=== PATIENT | female | born 1990 | race Hispanic/Latino ===

== ENCOUNTER 2025-03-22 00:08 | Emergency (ER) | payer OTHER ==
[~2025-03-22] VITALS: Ht 165.1 cm; Wt 58.1 kg
--- NOTE | 2025-03-22 00:50 | NUR ---
LEG CAST REMOVED BY MAGDI DRAKE
--- NOTE | 2025-03-22 01:21 | ERN ---
General Chief Complaint: Lower Extremity Pain/Injury Stated Complaint: C/O PAIN, SWELLING NUMBNESS TO LEFT LEG/FOOT; Time Seen by MD: 00:11 Source: patient History of Present Illness Initial Comments 34-year-old healthy female who five weeks ago fell work straining her left Achilles tendon and she was placed on crutches. Her follow-up appointment with an orthopedic surgeon a week later recommended a walking boot. Then proximally two weeks after that she slipped again and a work and re-injured her left Achilles tendon. At this point she noted that her has a muscles was bunched up towards her knee and she thought she could appreciate a sunken depression or gap underneath the skin covering her Achilles tendon. A that she had her left calf placed in a cast from her toes to her knee. She comes in today with increasing pain numbness and tingling in the toes of her left foot. On exam there is delayed capillary refill her left toes. Timing/Duration: 24 hours Allergies: Coded Allergies: No Known Allergies (Unverified Allergy, Unknown, 03/22/25) Past Medical History Past Medical History: Asthma Past Surgical History: Female( History) LMP: Feb 13, 2025 ROS Dictation Review of systems is negative beyond what is in the chief complaint and the HPI. Physical Exam Extremities Comment Patient does have decreased capillary refill in toes of her left foot. MDM Patient's chief complaint and exam is consistent with a left calf cast being too tight. Using an orthopedic cast saw we put a slit in the lateral portion the cast going from the top down to proximal to the ankle. Then we angled the split over the top of the foot down to the toes. It was done to protect the gutter in which her heel and Achilles tendon is immobilized. The cast was then wrapped with a Jermaine wrap. Given the story and the history of a gap seen in her lower leg after her 2nd injury I do feel the patient has ruptured her Achilles tendon and there is a chance she needs a surgical repair rather than just immobilization. Recommend she get an MRI and see an orthopedic surgeon. ED Course Orders Procedure Category Date Status Time Creatine Kinase, Total LAB 03/22/25 Logged 00:32 Vital Signs Date Time Temp Pulse Resp B/P (MAP) Pulse Ox O2 Delivery O2 Flow Rate FiO2 03/22/25 00:11 98.2 59 18 130/70 99 Room Air DX & DISP Disposition: Discharge Departure Impression: Primary Impression: Injury of left Achilles tendon Condition: Stable Referrals: NONE (PCP) CARMELINA SOMMERS MD Prtial or Full Left Achilles Tendon Repair ROGERIO REDD MD Mar 22, 2025 01:21
--- NOTE | 2025-03-22 01:35 | NUR ---
TRUDY WRAP PLACED ON PT AT BEDSIDE BY ED RN ORDERED BY ED MD WARREN
[2025-03-22 01:42] VITALS: BP 128/78; PULSE 76; RESP 16; TEMP 98.2; O2SAT 98
== END 2025-03-22 01:54 | disposition home or self-care (01) ==
LOC: EDH 00:08
DX: S86.002A Unspecified injury of left Achilles tendon, initial encounter (principal); J45.909 Unspecified asthma, uncomplicated; W19.XXXA Unspecified fall, initial encounter; Y93.89 Activity, other specified; Y92.89 Other specified places as the place of occurrence of the external cause; Y99.8 Other external cause status
CPT/HCPCS: 99282